=== PATIENT | female | born 1985 | race Caucasian/White ===

== ENCOUNTER 2018-02-02 22:14 | Inpatient (IN) | payer BC ==
[2018-02-02] MEDS ORDERED: Sodium Chloride 0.9% 10 ML Syringe FLUSH PRN (23:09)
[2018-02-02] MEDS ORDERED: Oxytocin/Lactated Ringers 10 UNIT/1,000 ML BAG IV SCH (23:15)
--- NOTE | 2018-02-02 23:34 | PCM.LDHP ---
L&D History of Present Illness - General Date of Service: 02/02/18 Admit Problem/Dx: Patient Status Order with Admit Dx/Problem 02/02/18 23:10 Patient Status [ADT] Routine Admission Diagnosis/Problem Admission Diagnosis/Problem Source of Information: Patient History Limitations: Reports: No Limitations - History of Present Illness Introduction:: Patient is a 33 y/o at 38 2/7 weeks gestation who presents with SROM/ labor. SROM and contractions began at about 1999. Rates contractions as a 5/ 10. No bleeding. Otherwise doing well. 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: 0 Psychiatric History: Reports: Anxiety, Depression Social & Family History - Tobacco Use Smoking Status *Q: Never Smoker - Alcohol Use Alcohol Use History: No - Recreational Drug Use Recreational Drug Use: No H&P Review of Systems - Review of Systems: Review Of Systems: See Below General: Reports: No Symptoms Pulmonary: Reports: No Symptoms Cardiovascular: Reports: No Symptoms Gastrointestinal: Reports: No Symptoms Genitourinary: Reports: No Symptoms Musculoskeletal: Reports: No Symptoms Psychiatric: Reports: No Symptoms Neurological: Reports: No Symptoms L&D Exam - Exam Exam: See Below - Vital Signs Weight: 73.482 kg - OB Specific Contraction Intensity: Mild to Moderate Movement: Active Heart Tones: Present Heart Tones per Min: 130 Heart Rate (FHR) Variability: Moderate (6-25 bmp) Presentation: Vertex - Henley Score Henley Score Cervix Position: Posterior Henley Score Consistency: Soft Henley Score Effacement: 51-70% Henley Score Dilation: 1-2 cm Henley Score 's Station: -3 Henley Score Total: 5 - Exam General: Alert, Oriented, Cooperative Lungs: Clear to Auscultation, Normal Respiratory Effort Cardiovascular: Regular Rate, Regular Rhythm GI/Abdominal Exam: Soft, Non-Tender Genitourinary: Normal external exam Extremities: Normal Inspection Skin: Warm, Dry, Intact - Patient Data Lab Results Last 24 hrs: Laboratory Results - last 24 hr 02/02/18 Range/Units 22:57 Membrane Rupture Positive H Result Diagrams: 02/02/18 23:25 - Problem List (1) 38 weeks gestation of SNOMED Code(s): 11132112 ICD Code: Z3A.38 - 38 WEEKS GESTATION OF Status: Acute Current Visit: Yes (2) SROM (spontaneous rupture of membranes) SNOMED Code(s): 290014976 ICD Code: [id number] - Status: Acute Current Visit: Yes Problem List Initiated/Reviewed/Updated: Yes Orders Last 24hrs: Active Orders 24 hr Category Date Time Status Patient Status [ADT] Routine ADT 02/02/18 23:10 Active Activity as Tolerated [RC] PFP Care 02/02/18 23:09 Active Communication Order [RC] ASDIRECTED Care 02/02/18 23:09 Active Heart Tones [RC] ASDIRECTED Care 02/02/18 23:10 Active Non Stress Test [RC] PER UNIT ROUTINE Care 02/02/18 23:09 Active Insert Perera Catheter [Insert Urinary Catheter] [OM.PC] Care 02/02/18 23:15 Ordered Q24H Notify Provider [RC] PFP Care 02/02/18 23:09 Active Notify Provider [RC] PRN Care 02/02/18 23:09 Active PCEA Epidural [RC] ASDIRECTED Care 02/02/18 23:11 Active Peripheral IV Care [RC] . DIRECTED Care 02/02/18 23:10 Active Urinary Catheter Assessment [RC] ASDIRECTED Care 02/02/18 23:12 Active Vital Signs [RC] PER UNIT ROUTINE Care 02/02/18 23:09 Active CBC WITH AUTO DIFF [HEME] Stat Lab 02/02/18 23:25 Received RUBELLA ANTIBODY IGG [CHEM] Stat Lab 02/02/18 23:25 Received TYPE AND SCREEN [BBK] Stat Lab 02/02/18 23:25 Received Lactated Ringers [Ringers, Lactated] 1,000 ml Med 02/02/18 23:15 Active IV ASDIRECTED Oxytocin/Lactated Ringers [Pitocin in LR 10 Units/1,000 Med 02/02/18 23:15 Active ML] 10 unit in 1,000 ml IV .CONTINUOUS Oxytocin/Lactated Ringers [Pitocin in LR 10 Units/1,000 Med 02/02/18 23:15 Active ML] 10 unit in 1,000 ml IV TITRATE Sodium Chloride 0.9% [Saline Flush] Med 02/02/18 23:09 Active 10 ml FLUSH ASDIRECTED PRN Electronic Heart Tones Ext w TOCO [WOMSER] Ot 02/02/18 23:09 Ordered Routine Electronic Heart Tones Internal [WOMSER] Per Unit Ot 02/02/18 23:09 Ordered Routine Peripheral IV Insertion Adult [OM.PC] Routine Oth 02/02/18 23:09 Ordered Resuscitation Status Routine Resus Stat 02/02/18 23:09 Ordered Medication Orders Lactated Ringer's (Ringers, Lactated) 1,000 mls @ 100 mls/hr IV ASDIRECTED LATRICE Oxytocin/Lactated Ringer's (Pitocin In Lr 10 Units/1,000 Ml) 10 unit in 1,000 mls @ 500 mls/hr IV .CONTINUOUS LATRICE Oxytocin/Lactated Ringer's (Pitocin In Lr 10 Units/1,000 Ml) 10 unit in 1,000 mls @ 12 mls/hr IV TITRATE LATRICE; Protocol Sodium Chloride (Saline Flush) 10 ml FLUSH ASDIRECTED PRN PRN Reason: Keep Vein Open Assessment/Plan Comment:: 33 y/o at 38 2/7 wks presents with SROM/labor * CBC, T&S, RPR * GBS negative, no need for antibiotics * Allow patient to labor on her own, pitocin augmentation if needed * pain control per patient preference * Anticipate
[2018-02-03] MEDS: Lactated Ringers 1,000 ML IV SCH ×5 (03:05→15:40)
[2018-02-03] MEDS ORDERED: fentaNYL 100 MCG/2 ML SDV EPIDUR PRN (03:46)
[2018-02-03] MEDS ORDERED: diphenhydrAMINE 50 MG/ML SDV IVPUSH PRN (03:46)
[2018-02-03] MEDS ORDERED: ePHEDrine 50 MG/ML SDV IVPUSH PRN (03:46)
[2018-02-03] MEDS: Bupivacaine/fentaNYL/NS 100 ML Bag EPIDUR SCH ×3 (04:11→15:40)
--- NOTE | 2018-02-03 04:14 | PCM.PREANE ---
Preanesthetic Assessment - Anesthesia/Transfusion/Family Hx Anesthesia History: No Prior Anesthesia Family History of Anesthesia Reaction: No Transfusion History: No Prior Transfusion(s) - Review of Systems General: No Symptoms Pulmonary: No Symptoms Cardiovascular: No Symptoms Gastrointestinal: No Symptoms Neurological: No Symptoms Other: Reports: None - Physical Assessment Pulse: 92 O2 Sat by Pulse Oximetry: 97 Respiratory Rate: 18 Blood Pressure: 119/67 Temperature: 36.3 C Vital Signs: Last Vital Signs Temp 36.6 C 02/02/18 23:09 Pulse 85 02/02/18 23:09 Resp 18 02/02/18 23:09 BP 124/79 02/02/18 23:09 Pulse Ox Height: 1.63 m Weight: 73.482 kg ASA Class: 2 Mental Status: Alert & Oriented x3 Airway Class: Mallampati = 1 Dentition: Reports: Normal Dentition Thyro-Mental Finger Breadths: 3 Mouth Opening Finger Breadths: 3 ROM/Head Extension: Full Lungs: Clear to Auscultation, Normal Respiratory Effort Cardiovascular: Regular Rate, Regular Rhythm - Lab Values: Laboratory Last Values WBC 11.16 K/mm3 (3.98-10.04) H 02/02/18 23:25 RBC 3.45 M/mm3 (3.98-5.22) L 02/02/18 23:25 Hgb 11.2 gm/L (11.2-15.7) 02/02/18 23:25 Hct 33.1 % (34.1-44.9) L 02/02/18 23:25 MCV 95.9 fl (79.4-94.8) H 02/02/18 23:25 MCH 32.5 pg (25.6-32.2) H 02/02/18 23:25 MCHC 33.8 g/dl (32.2-35.5) 02/02/18 23:25 RDW Std Deviation 44.4 fL (36.4-46.3) 02/02/18 23:25 Plt Count 157 K/mm3 (182-369) L 02/02/18 23:25 MPV 10.2 fl (9.4-12.3) 02/02/18 23:25 Neut % (Auto) 73.2 % (34.0-71.1) H 02/02/18 23:25 Lymph % (Auto) 18.0 % (19.3-51.7) L 02/02/18 23:25 [place] % (Auto) 7.5 % (4.7-12.5) 02/02/18 23:25 Eos % (Auto) 0.5 (0.7-5.8) L 02/02/18 23:25 Baso % (Auto) 0.2 % (0.1-1.2) 02/02/18 23:25 Neut # (Auto) 8.16 K/mm3 (1.56-6.13) H 02/02/18 23:25 Lymph # (Auto) 2.01 K/mm3 (1.18-3.74) 02/02/18 23:25 [place] # (Auto) 0.84 K/mm3 (0.24-0.36) H 02/02/18 23:25 Eos # (Auto) 0.06 K/mm3 (0.04-0.36) 02/02/18 23:25 Baso # (Auto) 0.02 K/mm3 (0.01-0.08) 02/02/18 23:25 Membrane Rupture Positive H 02/02/18 22:57 Blood Type O POSITIVE 02/02/18 23:25 Gel Antibody Screen Negative 02/02/18 23:25 - Allergies Allergies/Adverse Reactions: Allergies Allergy/AdvReac Type Severity Reaction Status Date / Time codeine Allergy Anaphylactic Verified 02/02/18 23:09 Shock - Anesthesia Plan Pre-Op Medication Ordered: None - Acknowledgements Anesthesia Type Planned: Epidural Pt an Appropriate Candidate for the Planned Anesthesia: Yes Alternatives and Risks of Anesthesia Discussed w Pt/Guardian: Yes Pt/Guardian Understands and Agrees with Anesthesia Plan: Yes PreAnesthesia Questionnaire - Past Health History Medical/Surgical History: Denies Medical/Surgical History Gastrointestinal History: Reports: GERD 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: Psychiatric History: Reports: Anxiety, Depression - SUBSTANCE USE Smoking Status *Q: Never Smoker Recreational Drug Use History: No - HOME MEDS Home Medications: Home Meds Vits #93/Iron Fum/FA [ Formula Tablet] 02/03/18 [History] - CURRENT (IN HOUSE) MEDS Current Meds: Current Medications Diphenhydramine HCl (Benadryl) 25 mg IVPUSH Q6H PRN PRN Reason: Itching Ephedrine Sulfate (Ephedrine Sulfate) 5 mg IVPUSH ASDIRECTED PRN PRN Reason: HYPOTENTSION Fentanyl (Sublimaze) 100 mcg EPIDUR Q3H PRN PRN Reason: Pain Last Admin: 02/03/18 04:10 Dose: 100 mcg Fentanyl/Bupivacaine HCl (Fentanyl/Bupivacaine/Ns 2 Mcg-0.125% 100 Ml) 100 ml EPIDUR ASDIRECTED LATRICE Last Admin: 02/03/18 04:11 Dose: 100 ml Lactated Ringer's (Ringers, Lactated) 1,000 mls @ 100 mls/hr IV ASDIRECTED LATRICE Last Admin: 02/03/18 03:05 Dose: 900 mls/hr Oxytocin/Lactated Ringer's (Pitocin In Lr 10 Units/1,000 Ml) 10 unit in 1,000 mls @ 500 mls/hr IV .CONTINUOUS LATRICE Oxytocin/Lactated Ringer's (Pitocin In Lr 10 Units/1,000 Ml) 10 unit in 1,000 mls @ 12 mls/hr IV TITRATE LATRICE; Protocol Sodium Chloride (Saline Flush) 10 ml FLUSH ASDIRECTED PRN PRN Reason: Keep Vein Open
[2018-02-03] MEDS ORDERED: Ondansetron 4 MG/2 ML SDV IVPUSH PRN (05:47)
[2018-02-03] MEDS: Oxytocin/Lactated Ringers 10 UNIT/1,000 ML BAG IV SCH ×2 (05:59→17:59)
--- NOTE | 2018-02-03 10:44 | PCM.PNLD ---
Labor Progress Note - VS & Meds Vital Signs: Last Vital Signs Temp 36.3 C 02/03/18 04:14 Pulse 92 02/03/18 04:14 Resp 18 02/03/18 04:14 BP 119/67 02/03/18 04:14 Pulse Ox 97 02/03/18 04:14 Active Medications: Current Medications Diphenhydramine HCl (Benadryl) 25 mg IVPUSH Q6H PRN PRN Reason: Itching Ephedrine Sulfate (Ephedrine Sulfate) 5 mg IVPUSH ASDIRECTED PRN PRN Reason: HYPOTENTSION Fentanyl (Sublimaze) 100 mcg EPIDUR Q3H PRN PRN Reason: Pain Last Admin: 02/03/18 04:10 Dose: 100 mcg Fentanyl/Bupivacaine HCl (Fentanyl/Bupivacaine/Ns 2 Mcg-0.125% 100 Ml) 100 ml EPIDUR ASDIRECTED LATRICE Last Admin: 02/03/18 09:49 Dose: 100 ml Lactated Ringer's (Ringers, Lactated) 1,000 mls @ 100 mls/hr IV ASDIRECTED LATRICE Last Admin: 02/03/18 05:58 Dose: 100 mls/hr Oxytocin/Lactated Ringer's (Pitocin In Lr 10 Units/1,000 Ml) 10 unit in 1,000 mls @ 500 mls/hr IV .CONTINUOUS LATRICE Oxytocin/Lactated Ringer's (Pitocin In Lr 10 Units/1,000 Ml) 10 unit in 1,000 mls @ 12 mls/hr IV TITRATE LATRICE; Protocol Last Titration: 02/03/18 10:36 Dose: 16 munits/min, 96 mls/hr Ondansetron HCl (Zofran) 4 mg IVPUSH Q8H PRN PRN Reason: Nausea Last Admin: 02/03/18 05:53 Dose: 4 mg Sodium Chloride (Saline Flush) 10 ml FLUSH ASDIRECTED PRN PRN Reason: Keep Vein Open - Uterine Contractions Uterine Monitoring Mode: External [place] Contraction Intensity: Moderate to Strong - Monitoring Monitor Mode: External Ultrasound Heart Rate (FHR) Baseline: 130 Heart Rate (FHR) Variability: Moderate (6-25 bmp) Accelerations: Present, 15x15 Decelerations: None - Vaginal Exam Dilation (cm): 3-4 Effacement (Percent): 50 Station: -2 Cervical Position: Midposition - Labor Progress (Free Text) Labor Progress: Patient received epidural in early AM. Pitocin started around 0600. Currently at 14. Making some change. Continue present management
--- NOTE | 2018-02-03 14:02 | PCM.PNLD ---
Labor Progress Note - VS & Meds Vital Signs: Last Vital Signs Temp 36.3 C 02/03/18 04:14 Pulse 92 02/03/18 04:14 Resp 18 02/03/18 04:14 BP 119/67 02/03/18 04:14 Pulse Ox 97 02/03/18 04:14 Active Medications: Current Medications Diphenhydramine HCl (Benadryl) 25 mg IVPUSH Q6H PRN PRN Reason: Itching Ephedrine Sulfate (Ephedrine Sulfate) 5 mg IVPUSH ASDIRECTED PRN PRN Reason: HYPOTENTSION Fentanyl (Sublimaze) 100 mcg EPIDUR Q3H PRN PRN Reason: Pain Last Admin: 02/03/18 04:10 Dose: 100 mcg Fentanyl/Bupivacaine HCl (Fentanyl/Bupivacaine/Ns 2 Mcg-0.125% 100 Ml) 100 ml EPIDUR ASDIRECTED LATRICE Last Admin: 02/03/18 09:49 Dose: 100 ml Lactated Ringer's (Ringers, Lactated) 1,000 mls @ 100 mls/hr IV ASDIRECTED LATRICE Last Admin: 02/03/18 05:58 Dose: 100 mls/hr Oxytocin/Lactated Ringer's (Pitocin In Lr 10 Units/1,000 Ml) 10 unit in 1,000 mls @ 500 mls/hr IV .CONTINUOUS LATRICE Oxytocin/Lactated Ringer's (Pitocin In Lr 10 Units/1,000 Ml) 10 unit in 1,000 mls @ 12 mls/hr IV TITRATE LATRICE; Protocol Last Titration: 02/03/18 13:15 Dose: 17 munits/min, 102 mls/hr Ondansetron HCl (Zofran) 4 mg IVPUSH Q8H PRN PRN Reason: Nausea Last Admin: 02/03/18 05:53 Dose: 4 mg Sodium Chloride (Saline Flush) 10 ml FLUSH ASDIRECTED PRN PRN Reason: Keep Vein Open - Uterine Contractions Uterine Monitoring Mode: External [place] Contraction Intensity: Moderate to Strong - Monitoring Monitor Mode: External Ultrasound Heart Rate (FHR) Baseline: 130 Heart Rate (FHR) Variability: Moderate (6-25 bmp) Accelerations: Present, 15x15 Decelerations: None Strip Review: Category I - Vaginal Exam Dilation (cm): 5 Effacement (Percent): 75 Station: 0 Cervical Position: Midposition - Labor Progress (Free Text) Labor Progress: Patient currently on 17 of pitocin. Feeling some pressure with contractions. SVE with a scant amount of bloody show. Now about 5 cm when previously 3-4. Continue present management.
[2018-02-03] MEDS ORDERED: Acetaminophen 325 MG Tab PO PRN (15:00)
--- NOTE | 2018-02-03 17:32 | PCM.PNLD ---
Labor Progress Note - VS & Meds Vital Signs: Last Vital Signs Temp 36.3 C 02/03/18 04:14 Pulse 92 02/03/18 04:14 Resp 18 02/03/18 04:14 BP 119/67 02/03/18 04:14 Pulse Ox 97 02/03/18 04:14 Active Medications: Current Medications Acetaminophen (Tylenol) 650 mg PO Q6H PRN PRN Reason: Headache/Pain Last Admin: 02/03/18 15:08 Dose: 650 mg Diphenhydramine HCl (Benadryl) 25 mg IVPUSH Q6H PRN PRN Reason: Itching Ephedrine Sulfate (Ephedrine Sulfate) 5 mg IVPUSH ASDIRECTED PRN PRN Reason: HYPOTENTSION Fentanyl (Sublimaze) 100 mcg EPIDUR Q3H PRN PRN Reason: Pain Last Admin: 02/03/18 04:10 Dose: 100 mcg Fentanyl/Bupivacaine HCl (Fentanyl/Bupivacaine/Ns 2 Mcg-0.125% 100 Ml) 100 ml EPIDUR ASDIRECTED LATRICE Last Admin: 02/03/18 15:40 Dose: 100 ml Lactated Ringer's (Ringers, Lactated) 1,000 mls @ 100 mls/hr IV ASDIRECTED LATRICE Last Admin: 02/03/18 15:40 Dose: 100 mls/hr Oxytocin/Lactated Ringer's (Pitocin In Lr 10 Units/1,000 Ml) 10 unit in 1,000 mls @ 500 mls/hr IV .CONTINUOUS LATRICE Oxytocin/Lactated Ringer's (Pitocin In Lr 10 Units/1,000 Ml) 10 unit in 1,000 mls @ 12 mls/hr IV TITRATE LATRICE; Protocol Last Titration: 02/03/18 13:15 Dose: 17 munits/min, 102 mls/hr Ondansetron HCl (Zofran) 4 mg IVPUSH Q8H PRN PRN Reason: Nausea Last Admin: 02/03/18 05:53 Dose: 4 mg Sodium Chloride (Saline Flush) 10 ml FLUSH ASDIRECTED PRN PRN Reason: Keep Vein Open - Uterine Contractions Uterine Monitoring Mode: External [place] Contraction Intensity: Moderate to Strong - Monitoring Monitor Mode: External Ultrasound Heart Rate (FHR) Baseline: 140 Heart Rate (FHR) Variability: Moderate (6-25 bmp) Accelerations: Present, 15x15 Decelerations: Early, Variable Strip Review: Category II - Vaginal Exam Dilation (cm): 5 Effacement (Percent): 50 Station: -1 Cervical Position: Midposition - Labor Progress (Free Text) Labor Progress: Patient last checked about 2.5 hours ago and was 5 cm. Remained 5 cm and cervix feels slightly more edematous at this time. IUPC placed. Position changes employed. Will assess again in another 2-3 hours assuming adequate contraction pattern.
--- NOTE | 2018-02-03 19:45 | PCM.SN ---
- Free Text/Narrative Note: 1937 Patient with adequate contraction pattern for the last 3 hours as based on IUPC. SVE essentially unchanged. Reviewed with patient options. Could certainly allow labor a few more hours, but feel this has a low probability of bringing about change/achieving . Can also move forward with PLTCS. Patient does prefer PLTCS. Anesthesia, OR, Peds to be made aware. Susan Caceres MD
[2018-02-03] MEDS ORDERED: ceFAZolin 2 GM in Premix Bag 1 BAG IV ONE (19:46)
[2018-02-03] MEDS ORDERED: Citric Acid/Sodium Citrate Solution 30 ML Cup PO ONE (19:46)
[2018-02-03] MEDS ORDERED: Metoclopramide 10 MG/2 ML SDV IVPUSH ONE (19:46)
[2018-02-03] MEDS ORDERED: Phenylephrine 1% 10 MG/ML SDV ONE (19:56)
[2018-02-03] MEDS ORDERED: Morphine PF 10 MG/10 ML SDV ONE (19:56)
[2018-02-03] MEDS ORDERED: ceFAZolin 1 GM Vial ONE (19:56)
[2018-02-03] MEDS ORDERED: Oxytocin 10 Units/1 ML SDV ONE (19:57)
[2018-02-03] MEDS ORDERED: Bupivacaine 0.75%/D5W 2 ML Amp ONE (19:57)
[2018-02-03] MEDS ORDERED: Lidocaine 2% with EPINEPHrine 1:200,000 20 ML SDV ONE (20:00)
--- NOTE | 2018-02-03 20:00 | PCM.OPNOTE ---
- General Post-Op/Procedure Note Date of Surgery/Procedure: 02/03/18 Operative Procedure(s): Primary low transverse Findings: Very distended/full bladder noted upon entering the abdomen. Baby girl in a vertex presentation. Weight of 8 lbs and 0 oz. APGARS of 8 & 9. Normal appearance of the uterus, fallopian tubes, and ovaries after delivery. Bladder decompressed after delivery of baby. Pre Op Diagnosis: 38 weeks gestation. PROM. 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 Pathology: Cord blood collected. Placenta discarded. Fluid Replacement, Intraop: 1,100 Output, Urine Amount: 500 EBL in mLs: 750 Complications: None Condition: Good Free Text/Narrative:: The risks, benefits, indications, potential complications, and alternatives were explained to the patient and informed consent obtained. After induction of anesthesia, the patient was placed in a supine position and then draped and prepped in the usual sterile manner. A Pfannenstiel incision was made and carried down through the subcutaneous tissue to the fascia. Fascial incision was made and extended transversely. The fascia was from the underlying rectus tissue superiorly and inferiorly. The peritoneum was identified and entered. Peritoneal incision was extended longitudinally. At this point it was noted that the bladder was significantly distended. Nursing made attempt to flush russo and advance russo, but without any significant draining of the bladder noted. Very carefully the the utero- vesical peritoneal reflection was incised transversely and the bladder flap was bluntly freed from the lower uterine segment. The bladder was held down with a hand and not a retractor to avoid injury. A low transverse uterine incision was made sharply with a scalpel and extended bluntly in a cephalocaudad direction. A baby girl was delivered from a vertex presentation with APGARS as above. After the umbilical cord was clamped and cut cord blood was obtained for evaluation. The placenta was removed intact and appeared normal. At this point the bladder was noted to be draining properly. The uterus was exteriorized and cleared of clots. The uterine outline, tubes and ovaries appeared normal. The uterine incision was closed with running locked sutures of 0 Vicryl. Hemostasis was obtained with a second imbricating layer of 0 vicryl in addition to several interrupted 0 vicryl sutures placed in figure of eight style. There as a moderate sized, 3 x 3 cm, subserosal hematoma noted on the left aspect of the uterus just superior to the hysterotomy. This was stable over the course of case and not expanding. The uterus was then placed back into the abdomen. The infracolic gutters were cleared of blood clots. The fascia was then reapproximated with running sutures of 0 Vicryl. The sucutaneous tissue was irrigated with sterile warm normal saline, hemostasis obtained with cautery. This layer was also closed with a running 0 vicryl. The skin was reapproximated with running Subcuticular 4-0 monocryl sutures. Instrument, sponge, and needle counts were correct prior the abdominal closure and at the conclusion of the case.
[2018-02-03] MEDS ORDERED: Ketorolac 30 MG/ML SDV ONE (20:45)
[2018-02-03] MEDS ORDERED: Meperidine PF 50 MG/ML Syringe ONE (21:01)
--- NOTE | 2018-02-03 21:25 | PCM.POSTAN ---
POST ANESTHESIA ASSESSMENT - MENTAL STATUS Mental Status: Alert, Oriented - VITAL SIGNS Pulse Rate: 98 SaO2: 95 Resp Rate: 16 Blood Pressure: 115/76 Temperature: 37.0 C - RESPIRATORY Respiratory Status: Respiratory Rate WNL, Airway Patent, O2 Saturation Stable, Supplemental Oxygen - CARDIOVASCULAR CV Status: Pulse Rate WNL, Blood Pressure Stable - GASTROINTESTINAL GI Status: No Symptoms - PAIN Pain Score: 0 - POST OP HYDRATION Hydration Status: Adequate & Stable - OBSERVATIONS Free Text/Narrative:: no anesthesia complications noted
[2018-02-03] MEDS ORDERED: Bupivacaine 0.25% 10 ML SDV ONE (22:00)
[2018-02-04] MEDS ORDERED: ePHEDrine 50 MG/ML SDV IVPUSH PRN (00:45)
[2018-02-04] MEDS ORDERED: Ondansetron 4 MG/2 ML SDV IV PRN (00:45)
[2018-02-04] MEDS ORDERED: Lanolin 100% Cream 7 GM Tube TOP PRN (00:45)
[2018-02-04] MEDS ORDERED: Dextrose 5%-Lactated Ringers 1,000 ML IV SCH (00:45)
[2018-02-04] MEDS: Ketorolac 30 MG/ML SDV IVPUSH SCH ×3 (03:39→15:37)
--- NOTE | 2018-02-04 08:43 | PCM.PNPP ---
- General Info Date of Service: 02/04/18 Functional Status: Reports: Pain Controlled, Tolerating Diet - Review of Systems General: Reports: No Symptoms Pulmonary: Reports: No Symptoms Cardiovascular: Reports: No Symptoms Gastrointestinal: Reports: Abdominal Pain (managed with medications ), Flatus Genitourinary: Reports: No Symptoms Musculoskeletal: Reports: No Symptoms - Patient Data Vital Signs - Most Recent: Last Vital Signs Temp 36.9 C 02/04/18 01:43 Pulse 81 02/04/18 03:39 Resp 15 02/04/18 07:00 BP 109/85 02/04/18 03:39 Pulse Ox 99 02/04/18 07:00 Weight - Most Recent: 73.482 kg I&O - Last 24 Hours: Intake & Output 02/03/18 02/04/18 02/04/18 22:59 06:59 14:59 Intake Total 640 4000 1100 Output Total 650 1250 500 Balance -10 2750 600 Lab Results - Last 24 Hours: Laboratory Results - last 24 hr 02/02/18 02/04/18 Range/Units 23:25 06:25 WBC 12.33 H (3.98-10.04) K/mm3 RBC 2.57 L (3.98-5.22) M/mm3 Hgb 8.2 L (11.2-15.7) gm/L Hct 24.9 L (34.1-44.9) % MCV 96.9 H (79.4-94.8) fl MCH 31.9 (25.6-32.2) pg MCHC 32.9 (32.2-35.5) g/dl RDW Std Deviation 44.5 (36.4-46.3) fL Plt Count 135 L (182-369) K/mm3 MPV 10.0 (9.4-12.3) fl RPR Non-reactive (NONREACTIVE) Med Orders - Current: Current Medications Docusate Sodium (Colace) 100 mg PO Q12H PRN PRN Reason: Constipation Emollient Ointment (Lansinoh Hpa) 0 gm TOP ASDIRECTED PRN PRN Reason: Sore Nipples Last Admin: 02/04/18 01:46 Dose: 1 tube Ephedrine Sulfate (Ephedrine Sulfate) 5 mg IVPUSH SEECOMMENT PRN PRN Reason: Other Dextrose/Lactated Ringer's (Dextrose 5%-Lactated Ringers) 1,000 mls @ 125 mls/ hr IV ASDIRECTED [facility] Stop: 02/04/18 08:44 Last Admin: 02/04/18 01:44 Dose: 125 mls/hr Ibuprofen (Motrin) 600 mg PO Q6H PRN PRN Reason: mild pain or fever Ketorolac Tromethamine (Toradol) 30 mg IVPUSH Q6H [facility] Stop: 02/04/18 15:31 Last Admin: 02/04/18 03:39 Dose: 30 mg Ondansetron HCl (Zofran) 4 mg IV Q8H PRN PRN Reason: Nausea/Vomiting Oxycodone/Acetaminophen (Percocet 325-5 Mg) 2 tab PO Q4H PRN PRN Reason: Pain (moderate 4-6) Discontinued Medications Acetaminophen (Tylenol) 650 mg PO Q6H PRN PRN Reason: Headache/Pain Last Admin: 02/03/18 15:08 Dose: 650 mg Bupivacaine HCl/Dextrose (Marcaine 0.75% Spinal) Confirm Administered Dose 2 ml .ROUTE .STK-MED ONE Stop: 02/03/18 19:58 Cefazolin Sodium (Ancef) Confirm Administered Dose 2 gm .ROUTE .STK-MED ONE Stop: 02/03/18 19:57 Citric Acid/Sodium Citrate (Bicitra Solution) 30 ml PO ONETIME ONE Stop: 02/03/18 19:47 Last Admin: 02/03/18 20:01 Dose: 30 ml Diphenhydramine HCl (Benadryl) 25 mg IVPUSH Q6H PRN PRN Reason: Itching Ephedrine Sulfate (Ephedrine Sulfate) 5 mg IVPUSH ASDIRECTED PRN PRN Reason: HYPOTENTSION Fentanyl (Sublimaze) 100 mcg EPIDUR Q3H PRN PRN Reason: Pain Last Admin: 02/03/18 04:10 Dose: 100 mcg Fentanyl/Bupivacaine HCl (Fentanyl/Bupivacaine/Ns 2 Mcg-0.125% 100 Ml) 100 ml EPIDUR ASDIRECTED [facility] Last Admin: 02/03/18 15:40 Dose: 100 ml Lactated Ringer's (Ringers, Lactated) 1,000 mls @ 100 mls/hr IV ASDIRECTED [facility] Last Admin: 02/03/18 15:40 Dose: 100 mls/hr Oxytocin/Lactated Ringer's (Pitocin In Lr 10 Units/1,000 Ml) 10 unit in 1,000 mls @ 500 mls/hr IV .CONTINUOUS LATRICE Oxytocin/Lactated Ringer's (Pitocin In Lr 10 Units/1,000 Ml) 10 unit in 1,000 mls @ 12 mls/hr IV TITRATE LATRICE; Protocol Last Titration: 02/03/18 19:37 Dose: 0 munits/min, 0 mls/hr Cefazolin Sodium/Dextrose 2 gm (/ Premix) 50 mls @ 100 mls/hr IV ONETIME ONE Stop: 02/03/18 20:15 Ketorolac Tromethamine (Toradol) Confirm Administered Dose 30 mg .ROUTE .STK- MED ONE Stop: 02/03/18 20:46 Lidocaine/Epinephrine (Xylocaine-Mpf 2%-Epi 1:200,000) Confirm Administered Dose 20 ml .ROUTE .STK-MED ONE Stop: 02/03/18 20:01 Meperidine HCl (Demerol) Confirm Administered Dose 50 mg .ROUTE .STK-MED ONE Stop: 02/03/18 21:02 Metoclopramide HCl (Reglan) 10 mg IVPUSH ONETIME ONE Stop: 02/03/18 19:47 Last Admin: 02/03/18 20:03 Dose: 10 mg Morphine Sulfate (Duramorph Pf) Confirm Administered Dose 10 mg .ROUTE .STK-MED ONE Stop: 02/03/18 19:57 Ondansetron HCl (Zofran) 4 mg IVPUSH Q8H PRN PRN Reason: Nausea Last Admin: 02/03/18 05:53 Dose: 4 mg Oxytocin (Pitocin) Confirm Administered Dose 10 unit .ROUTE .STK-MED ONE Stop: 02/03/18 19:58 Phenylephrine HCl (Orion-Synephrine) Confirm Administered Dose 10 mg .ROUTE .STK- MED ONE Stop: 02/03/18 19:57 Sodium Chloride (Saline Flush) 10 ml FLUSH ASDIRECTED PRN PRN Reason: Keep Vein Open - Interaction Infant Disposition, : in Room with Family Infant Interaction: Holding Infant Infant Feeding: Attempted ; Nursed Fair/Poor Support Person: - Recovery Exam Fundal Tone: Firm Fundal Level: At Umbilicus Fundal Placement: Midline Lochia Amount: Scant Lochia Color: Rubra/Red Perineum Description: Edematous Episiotomy/Laceration: None Bladder Status: Nonpalpable Urinary Elimination: Indwelling Catheter - Exam General: Alert, Oriented, Cooperative Lungs: Clear to Auscultation, Normal Respiratory Effort Cardiovascular: Regular Rate, Regular Rhythm GI/Abdominal Exam: Soft, Distended, Tender (appropriate post op) Extremities: Normal Inspection, Pedal Edema Skin: Warm, Dry, Intact Wound/Incisions: Drainage (serosanguinous drainage on dressing, replaced. Incision intact underneath) - Problem List & Annotations (1) 38 weeks gestation of SNOMED Code(s): 44928152 Code(s): Z3A.38 - 38 WEEKS GESTATION OF Status: Acute Current Visit: Yes (2) SROM (spontaneous rupture of membranes) SNOMED Code(s): 932059970 Code(s): LYY5064 - Status: Acute Current Visit: Yes - Problem List Review Problem List Initiated/Reviewed/Updated: Yes - My Orders Last 24 Hours: My Active Orders 02/03/18 19:46 Procedure Site Prep Instruct [RC] ASDIRECTED Verify Patient Consent Obtain [RC] PER UNIT ROUTINE 02/04/18 00:45 Activity as Tolerated [RC] .Routine Communication Order [RC] PER UNIT ROUTINE Intake and Output [RC] Q4H Notify Provider Intake and Out [RC] ASDIRECTED RT Incentive Spirometry [RC] Q2HWA Vital Signs [RC] Q1HR Acetaminophen/oxyCODONE [Percocet 325-5 MG] 2 tab PO Q4H PRN Dextrose 5%-Lactated Ringers 1,000 ml IV ASDIRECTED Docusate Sodium [Colace] 100 mg PO Q12H PRN Lanolin [Lansinoh HPA] See Dose Instructions TOP ASDIRECTED PRN Ondansetron [Zofran] 4 mg IV Q8H PRN ePHEDrine [ePHEDrine Sulfate] 5 mg IVPUSH SEECOMMENT PRN Assess Lochia [WOMSER] Per Unit Routine Assess Uterine Involution [WOMSER] Per Unit Routine Breast Pump [WOMSER] Per Unit Routine Peripheral IV Discontinue [OM.PC] Routine Sequential Compression Device [OM.PC] Per Unit Routine 02/04/18 03:30 Ketorolac [Toradol] 30 mg IVPUSH Q6H 02/04/18 21:26 Urinary Catheter Removal [RC] Per Unit Routine 02/04/18 21:30 Ibuprofen [Motrin] 600 mg PO Q6H PRN 02/04/18 Dinner Regular Diet [DIET] - Assessment Assessment:: 33 y/o G1 now P1001 POD#1 from [facility] for FTP in 1st stage. - Plan Plan:: [facility] * Hb today with drop to 8 from 11, suspect some amount of dilution given amount of fluids patient received. Will repeat tomorrow * Routine care * Encourage breast feeding * Discharge home in 1-2 days
[2018-02-04] MEDS: Docusate Sodium 100 MG Cap PO PRN (09:45)
[2018-02-04] MEDS: Simethicone 80 MG Tab.Chew PO PRN ×2 (09:45→15:43)
--- NOTE | 2018-02-04 11:28 | PCM48HPAN ---
Post Anesthesia Note - EVALUATION WITHIN 48HRS OF ANESTHETIC Vital Signs in Normal Range: Yes Patient Participated in Evaluation: Yes Respiratory Function Stable: Yes Airway Patent: Yes Cardiovascular Function Stable: Yes Hydration Status Stable: Yes Pain Control Satisfactory: Yes Nausea and Vomiting Control Satisfactory: Yes Mental Status Recovered: Yes Pulse Rate: 81 Resp Rate: 16 Temperature: 36.9 C Blood Pressure: 109/85
[2018-02-04] MEDS: Ibuprofen 600 MG Tab PO PRN (21:30)
--- NOTE | 2018-02-05 06:52 | PCM.PNPP ---
- General Info Date of Service: 02/05/18 Functional Status: Reports: Pain Controlled, Tolerating Diet, Ambulating, Urinating - Review of Systems General: Reports: No Symptoms Pulmonary: Reports: No Symptoms Cardiovascular: Reports: No Symptoms Gastrointestinal: Reports: Abdominal Pain (managed with medications) Genitourinary: Reports: No Symptoms Musculoskeletal: Reports: No Symptoms Psychiatric: Reports: Anxiety - Patient Data Vital Signs - Most Recent: Last Vital Signs Temp 36.7 C 02/05/18 02:38 Pulse 69 02/05/18 02:38 Resp 16 02/05/18 02:38 BP 108/79 02/05/18 02:38 Pulse Ox 95 02/05/18 02:38 Weight - Most Recent: 73.482 kg I&O - Last 24 Hours: Intake & Output 02/04/18 02/04/18 02/05/18 14:59 22:59 06:59 Intake Total 1280 Output Total 1175 1500 Balance 105 -1500 Lab Results - Last 24 Hours: Laboratory Results - last 24 hr 02/04/18 02/05/18 Range/Units 06:25 05:45 WBC 12.33 H 11.96 H (3.98-10.04) K/mm3 RBC 2.57 L 2.66 L (3.98-5.22) M/mm3 Hgb 8.2 L 8.5 L (11.2-15.7) gm/L Hct 24.9 L 26.1 L (34.1-44.9) % MCV 96.9 H 98.1 H (79.4-94.8) fl MCH 31.9 32.0 (25.6-32.2) pg MCHC 32.9 32.6 (32.2-35.5) g/dl RDW Std Deviation 44.5 45.7 (36.4-46.3) fL Plt Count 135 L 158 L (182-369) K/mm3 MPV 10.0 9.6 (9.4-12.3) fl Med Orders - Current: Current Medications Docusate Sodium (Colace) 100 mg PO Q12H PRN PRN Reason: Constipation Last Admin: 02/04/18 09:45 Dose: 100 mg Emollient Ointment (Lansinoh Hpa) 0 gm TOP ASDIRECTED PRN PRN Reason: Sore Nipples Last Admin: 02/04/18 01:46 Dose: 1 tube Ephedrine Sulfate (Ephedrine Sulfate) 5 mg IVPUSH SEECOMMENT PRN PRN Reason: Other Ibuprofen (Motrin) 600 mg PO Q6H PRN PRN Reason: mild pain or fever Last Admin: 02/04/18 21:30 Dose: 600 mg Ondansetron HCl (Zofran) 4 mg IV Q8H PRN PRN Reason: Nausea/Vomiting Oxycodone/Acetaminophen (Percocet 325-5 Mg) 2 tab PO Q4H PRN PRN Reason: Pain (moderate 4-6) Simethicone (Simethicone) 80 mg PO Q4H PRN PRN Reason: Gas Last Admin: 02/04/18 15:43 Dose: 80 mg Discontinued Medications Acetaminophen (Tylenol) 650 mg PO Q6H PRN PRN Reason: Headache/Pain Last Admin: 02/03/18 15:08 Dose: 650 mg Bupivacaine HCl/Dextrose (Marcaine 0.75% Spinal) Confirm Administered Dose 2 ml .ROUTE .STK-MED ONE Stop: 02/03/18 19:58 Cefazolin Sodium (Ancef) Confirm Administered Dose 2 gm .ROUTE .STK-MED ONE Stop: 02/03/18 19:57 Citric Acid/Sodium Citrate (Bicitra Solution) 30 ml PO ONETIME ONE Stop: 02/03/18 19:47 Last Admin: 02/03/18 20:01 Dose: 30 ml Diphenhydramine HCl (Benadryl) 25 mg IVPUSH Q6H PRN PRN Reason: Itching Ephedrine Sulfate (Ephedrine Sulfate) 5 mg IVPUSH ASDIRECTED PRN PRN Reason: HYPOTENTSION Fentanyl (Sublimaze) 100 mcg EPIDUR Q3H PRN PRN Reason: Pain Last Admin: 02/03/18 04:10 Dose: 100 mcg Fentanyl/Bupivacaine HCl (Fentanyl/Bupivacaine/Ns 2 Mcg-0.125% 100 Ml) 100 ml EPIDUR ASDIRECTED [facility] Last Admin: 02/03/18 15:40 Dose: 100 ml Lactated Ringer's (Ringers, Lactated) 1,000 mls @ 100 mls/hr IV ASDIRECTED [facility] Last Admin: 02/03/18 15:40 Dose: 100 mls/hr Oxytocin/Lactated Ringer's (Pitocin In Lr 10 Units/1,000 Ml) 10 unit in 1,000 mls @ 500 mls/hr IV .CONTINUOUS LATRICE Oxytocin/Lactated Ringer's (Pitocin In Lr 10 Units/1,000 Ml) 10 unit in 1,000 mls @ 12 mls/hr IV TITRATE LATRICE; Protocol Last Titration: 02/03/18 19:37 Dose: 0 munits/min, 0 mls/hr Cefazolin Sodium/Dextrose 2 gm (/ Premix) 50 mls @ 100 mls/hr IV ONETIME ONE Stop: 02/03/18 20:15 Last Admin: 02/04/18 18:03 Dose: Not Given Dextrose/Lactated Ringer's (Dextrose 5%-Lactated Ringers) 1,000 mls @ 125 mls/ hr IV ASDIRECTED [facility] Stop: 02/04/18 08:44 Last Admin: 02/04/18 01:44 Dose: 125 mls/hr Ketorolac Tromethamine (Toradol) Confirm Administered Dose 30 mg .ROUTE .STK- MED ONE Stop: 02/03/18 20:46 Ketorolac Tromethamine (Toradol) 30 mg IVPUSH Q6H [facility] Stop: 02/04/18 15:31 Last Admin: 02/04/18 15:37 Dose: 30 mg Lidocaine/Epinephrine (Xylocaine-Mpf 2%-Epi 1:200,000) Confirm Administered Dose 20 ml .ROUTE .STK-MED ONE Stop: 02/03/18 20:01 Meperidine HCl (Demerol) Confirm Administered Dose 50 mg .ROUTE .STK-MED ONE Stop: 02/03/18 21:02 Metoclopramide HCl (Reglan) 10 mg IVPUSH ONETIME ONE Stop: 02/03/18 19:47 Last Admin: 02/03/18 20:03 Dose: 10 mg Morphine Sulfate (Duramorph Pf) Confirm Administered Dose 10 mg .ROUTE .STK-MED ONE Stop: 02/03/18 19:57 Ondansetron HCl (Zofran) 4 mg IVPUSH Q8H PRN PRN Reason: Nausea Last Admin: 02/03/18 05:53 Dose: 4 mg Oxytocin (Pitocin) Confirm Administered Dose 10 unit .ROUTE .STK-MED ONE Stop: 02/03/18 19:58 Phenylephrine HCl (Orion-Synephrine) Confirm Administered Dose 10 mg .ROUTE .STK- MED ONE Stop: 02/03/18 19:57 Sodium Chloride (Saline Flush) 10 ml FLUSH ASDIRECTED PRN PRN Reason: Keep Vein Open - Infant Interaction Disposition, : in Room with Family Infant Interaction: Holding Infant Infant Feeding: Attempted ; Nursed Fair/Poor Support Person: - Recovery Exam Fundal Tone: Firm Fundal Level: At Umbilicus Fundal Placement: Midline Lochia Amount: Scant Lochia Color: Rubra/Red Perineum Description: Intact, Minimal Bruising/Swelling Episiotomy/Laceration: None Bladder Status: Voiding Urinary Elimination: Voided - Exam General: Alert, Oriented, Cooperative Lungs: Clear to Auscultation, Normal Respiratory Effort Cardiovascular: Regular Rate, Regular Rhythm GI/Abdominal Exam: Soft, Tender (appropriate post op) Skin: Warm, Dry, Intact Wound/Incisions: Healing Well, No Drainage - Problem List & Annotations (1) 38 weeks gestation of SNOMED Code(s): 28486699 Code(s): Z3A.38 - 38 WEEKS GESTATION OF Status: Acute Current Visit: Yes (2) SROM (spontaneous rupture of membranes) SNOMED Code(s): 353454010 Code(s): JWC1886 - Status: Acute Current Visit: Yes (3) Failure to progress in first stage of labor SNOMED Code(s): 643081792 Code(s): RDK8889 - Status: Acute Current Visit: Yes (4) S/P primary low transverse SNOMED Code(s): 370296790, 92519181, 527596989, 843984433, 619418525 Code(s): Z98.891 - HISTORY OF UTERINE SCAR FROM PREVIOUS SURGERY Status: Acute Current Visit: Yes - Problem List Review Problem List Initiated/Reviewed/Updated: Yes - My Orders Last 24 Hours: My Active Orders 02/04/18 09:34 Simethicone 80 mg PO Q4H PRN 02/04/18 21:30 Ibuprofen [Motrin] 600 mg PO Q6H PRN 02/04/18 Dinner Regular Diet [DIET] - Assessment Assessment:: 33 y/o G1 now P1001 POD#2 from [facility] for FTP in 1st stage. - Plan Plan:: [facility] * Routine care * Continue to work on breast feeding, some difficulty with latch * Patient with increasing anxiety. Will re-start her home Zoloft at 50 mg * Discharge home tomorrow
[2018-02-05] MEDS: Acetaminophen/oxyCODONE 325-5 MG Tab PO PRN ×3 (08:14→21:06)
[2018-02-05] MEDS: Docusate Sodium 100 MG Cap PO PRN (09:13)
[2018-02-05] MEDS: Ibuprofen 600 MG Tab PO PRN (21:07)
--- NOTE | 2018-02-06 07:20 | PCM.PNPP ---
- General Info Date of Service: 02/06/18 Functional Status: Reports: Pain Controlled, Tolerating Diet, Ambulating, Urinating - Review of Systems General: Reports: No Symptoms Pulmonary: Reports: No Symptoms Cardiovascular: Reports: No Symptoms Gastrointestinal: Reports: Abdominal Pain (manageable) Genitourinary: Reports: No Symptoms Musculoskeletal: Reports: No Symptoms Psychiatric: Reports: Anxiety - Patient Data Vital Signs - Most Recent: Last Vital Signs Temp 36.7 C 02/06/18 03:51 Pulse 72 02/06/18 03:51 Resp 16 02/06/18 03:51 BP 125/91 H 02/06/18 03:51 Pulse Ox 99 02/06/18 03:51 Weight - Most Recent: 73.482 kg Med Orders - Current: Current Medications Docusate Sodium (Colace) 100 mg PO Q12H PRN PRN Reason: Constipation Last Admin: 02/05/18 09:13 Dose: 100 mg Emollient Ointment (Lansinoh Hpa) 0 gm TOP ASDIRECTED PRN PRN Reason: Sore Nipples Last Admin: 02/04/18 01:46 Dose: 1 tube Ephedrine Sulfate (Ephedrine Sulfate) 5 mg IVPUSH SEECOMMENT PRN PRN Reason: Other Ibuprofen (Motrin) 600 mg PO Q6H PRN PRN Reason: mild pain or fever Last Admin: 02/05/18 21:07 Dose: 600 mg Ondansetron HCl (Zofran) 4 mg IV Q8H PRN PRN Reason: Nausea/Vomiting Oxycodone/Acetaminophen (Percocet 325-5 Mg) 2 tab PO Q4H PRN PRN Reason: Pain (moderate 4-6) Last Admin: 02/05/18 21:06 Dose: 2 tab Simethicone (Simethicone) 80 mg PO Q4H PRN PRN Reason: Gas Last Admin: 02/04/18 15:43 Dose: 80 mg Discontinued Medications Acetaminophen (Tylenol) 650 mg PO Q6H PRN PRN Reason: Headache/Pain Last Admin: 02/03/18 15:08 Dose: 650 mg Bupivacaine HCl/Dextrose (Marcaine 0.75% Spinal) Confirm Administered Dose 2 ml .ROUTE .STK-MED ONE Stop: 02/03/18 19:58 Cefazolin Sodium (Ancef) Confirm Administered Dose 2 gm .ROUTE .STK-MED ONE Stop: 02/03/18 19:57 Citric Acid/Sodium Citrate (Bicitra Solution) 30 ml PO ONETIME ONE Stop: 02/03/18 19:47 Last Admin: 02/03/18 20:01 Dose: 30 ml Diphenhydramine HCl (Benadryl) 25 mg IVPUSH Q6H PRN PRN Reason: Itching Ephedrine Sulfate (Ephedrine Sulfate) 5 mg IVPUSH ASDIRECTED PRN PRN Reason: HYPOTENTSION Fentanyl (Sublimaze) 100 mcg EPIDUR Q3H PRN PRN Reason: Pain Last Admin: 02/03/18 04:10 Dose: 100 mcg Fentanyl/Bupivacaine HCl (Fentanyl/Bupivacaine/Ns 2 Mcg-0.125% 100 Ml) 100 ml EPIDUR ASDIRECTED [facility] Last Admin: 02/03/18 15:40 Dose: 100 ml Lactated Ringer's (Ringers, Lactated) 1,000 mls @ 100 mls/hr IV ASDIRECTED [facility] Last Admin: 02/03/18 15:40 Dose: 100 mls/hr Oxytocin/Lactated Ringer's (Pitocin In Lr 10 Units/1,000 Ml) 10 unit in 1,000 mls @ 500 mls/hr IV .CONTINUOUS LATRICE Oxytocin/Lactated Ringer's (Pitocin In Lr 10 Units/1,000 Ml) 10 unit in 1,000 mls @ 12 mls/hr IV TITRATE LATRICE; Protocol Last Titration: 02/03/18 19:37 Dose: 0 munits/min, 0 mls/hr Cefazolin Sodium/Dextrose 2 gm (/ Premix) 50 mls @ 100 mls/hr IV ONETIME ONE Stop: 02/03/18 20:15 Last Admin: 02/04/18 18:03 Dose: Not Given Dextrose/Lactated Ringer's (Dextrose 5%-Lactated Ringers) 1,000 mls @ 125 mls/ hr IV ASDIRECTED [facility] Stop: 02/04/18 08:44 Last Admin: 02/04/18 01:44 Dose: 125 mls/hr Ketorolac Tromethamine (Toradol) Confirm Administered Dose 30 mg .ROUTE .STK- MED ONE Stop: 02/03/18 20:46 Ketorolac Tromethamine (Toradol) 30 mg IVPUSH Q6H [facility] Stop: 02/04/18 15:31 Last Admin: 02/04/18 15:37 Dose: 30 mg Lidocaine/Epinephrine (Xylocaine-Mpf 2%-Epi 1:200,000) Confirm Administered Dose 20 ml .ROUTE .STK-MED ONE Stop: 02/03/18 20:01 Meperidine HCl (Demerol) Confirm Administered Dose 50 mg .ROUTE .STK-MED ONE Stop: 02/03/18 21:02 Metoclopramide HCl (Reglan) 10 mg IVPUSH ONETIME ONE Stop: 02/03/18 19:47 Last Admin: 02/03/18 20:03 Dose: 10 mg Morphine Sulfate (Duramorph Pf) Confirm Administered Dose 10 mg .ROUTE .STK-MED ONE Stop: 02/03/18 19:57 Ondansetron HCl (Zofran) 4 mg IVPUSH Q8H PRN PRN Reason: Nausea Last Admin: 02/03/18 05:53 Dose: 4 mg Oxytocin (Pitocin) Confirm Administered Dose 10 unit .ROUTE .STK-MED ONE Stop: 02/03/18 19:58 Phenylephrine HCl (Orion-Synephrine) Confirm Administered Dose 10 mg .ROUTE .STK- MED ONE Stop: 02/03/18 19:57 Sodium Chloride (Saline Flush) 10 ml FLUSH ASDIRECTED PRN PRN Reason: Keep Vein Open - Infant Interaction Infant Disposition, : [place] in Room with Family Interaction: Holding Infant Infant Feeding: Attempted ; Nursed Fair/Poor Support Person: - Recovery Exam Fundal Tone: Firm Fundal Level: 1 Fingerbreadths Below Umbilicus Fundal Placement: Midline Lochia Amount: Scant Lochia Color: Rubra/Red Perineum Description: Intact, Minimal Bruising/Swelling Episiotomy/Laceration: None Bladder Status: Voiding Urinary Elimination: Voided - Exam General: Alert, Oriented, Cooperative Lungs: Clear to Auscultation, Normal Respiratory Effort Cardiovascular: Regular Rate, Regular Rhythm GI/Abdominal Exam: Soft, Tender (appropriate) Extremities: Normal Inspection Skin: Warm, Dry, Intact Wound/Incisions: Healing Well, No Drainage - Problem List & Annotations (1) 38 weeks gestation of SNOMED Code(s): 50256213 Code(s): Z3A.38 - 38 WEEKS GESTATION OF Status: Acute Current Visit: Yes (2) SROM (spontaneous rupture of membranes) SNOMED Code(s): 498495325 Code(s): RWW5360 - Status: Acute Current Visit: Yes (3) Failure to progress in first stage of labor SNOMED Code(s): 263157243 Code(s): UZG7044 - Status: Acute Current Visit: Yes (4) S/P primary low transverse SNOMED Code(s): 568162646, 41370315, 977583917, 771874817, 205143552 Code(s): Z98.891 - HISTORY OF UTERINE SCAR FROM PREVIOUS SURGERY Status: Acute Current Visit: Yes - Problem List Review Problem List Initiated/Reviewed/Updated: Yes - My Orders Last 24 Hours: My Active Orders 02/06/ 07:18 Ready for Discharge [RC] PER UNIT ROUTINE - Assessment Assessment:: 33 y/o G1 now P1001 POD#3 from [facility] for FTP in 1st stage. - Plan Plan:: [facility] * Routine care * Continue to work on breast feeding, will follow up in clinic * Zoloft restarted yesterday at 50 mg * Discharge home today
--- NOTE | 2018-02-06 07:20 | PCM.DCSUM1 ---
Discharge Summary - Discharge Data Discharge Date: 02/06/18 Discharge Disposition: Home, Self-Care 01 Condition: Good - Discharge Diagnosis/Problem(s) (1) 38 weeks gestation of SNOMED Code(s): 47408566 ICD Code: Z3A.38 - 38 WEEKS GESTATION OF Status: Acute Current Visit: Yes (2) SROM (spontaneous rupture of membranes) SNOMED Code(s): 471382982 ICD Code: [id number] - Status: Acute Current Visit: Yes (3) Failure to progress in first stage of labor SNOMED Code(s): 267544127 ICD Code: [id number] - Status: Acute Current Visit: Yes (4) S/P primary low transverse SNOMED Code(s): 532706811, 68182910, 866770459, [id number], 269532564 ICD Code: Z98.891 - HISTORY OF UTERINE SCAR FROM PREVIOUS SURGERY Status: Acute Current Visit: Yes - Patient Summary/Data Operative Procedure(s) Performed: Primary low transverse Complications: None Consults: None Recommended Follow-up Testing/Procedures: Follow up with Dr. Richardson in 2 weeks for incision check / mood check Hospital Course: Patient is a 33-year-old who presented at 38-2/7 weeks gestation with premature rupture of membranes. Initial exam showed her to only be about a half centimeter or so dilated. She was given a time to labor on her own, but after epidural did agree to Pitocin augmentation. She initially made good change to 5 cm, but then had arrest of dilation. IUPC placed and Pitocin further titrated. Patient with adequate contractions for approximately 3 hours and still with no cervical change past 5 cm. In addition there was some molding of head and swelling noted of the cervix. Given these findings and patient being ruptured for approximately 24 hours she was counseled on options and did agree to delivery via . This was notable for her bladder being markedly distended. Other than this surgery was uncomplicated. she did well. She did have some increasing anxiety on day #2 and so her Zoloft was restarted at a dose of 50 mg. She was eventually discharged home on postop day 3 with plans to follow up in clinic in 2 weeks for incision check and wound check. - Patient Instructions Diet: Regular Diet as Tolerated Activity: No Lifting Over 10 Pounds Activity, Other: Pelvic rest for 6 weeks Driving: Do Not Drive (While taking narcotics ) Showering/Bathing: May Shower, No Tub Bathing/Swimming Wound/Incision Care: Keep Operative Site/Wound Site Clean and Dry Notify Provider of: Fever, Increased Pain, Swelling and Redness, Drainage, Nausea and/or Vomiting - Discharge Plan *PRESCRIPTION DRUG MONITORING PROGRAM REVIEWED*: No *COPY OF PRESCRIPTION DRUG MONITORING REPORT IN PATIENT GEMA: No Prescriptions/Med Rec: Acetaminophen/oxyCODONE [Percocet 325-5 MG] 2 tab PO Q4H PRN #25 tablet PRN Reason: Pain (Moderate 4-6) Home Medications: Home Meds Vits #93/Iron Fum/FA [ Formula Tablet] 02/03/18 [History] Acetaminophen/oxyCODONE [Percocet 325-5 MG] 2 tab PO Q4H PRN #25 tablet [Rx] Docusate Sodium [Colace] 100 mg PO Q12H PRN #0 cap 02/05/18 [Rx] Ibuprofen [Motrin] 600 mg PO Q6H PRN tablet 02/05/18 [Rx] Patient Handouts: Home Care Instructions for Mom, Tips for a Good Latch Referrals: Bill Richardson MD [Physician] - (2 weeks for incision check) - Discharge Summary/Plan Comment DC Time >30 min.: No - Patient Data Vitals - Most Recent: Last Vital Signs Temp 36.7 C 02/06/18 03:51 Pulse 72 02/06/18 03:51 Resp 16 02/06/18 03:51 BP 125/91 H 02/06/18 03:51 Pulse Ox 99 02/06/18 03:51 Weight - Most Recent: 73.482 kg Med Orders - Current: Current Medications Docusate Sodium (Colace) 100 mg PO Q12H PRN PRN Reason: Constipation Last Admin: 02/05/18 09:13 Dose: 100 mg Emollient Ointment (Lansinoh Hpa) 0 gm TOP ASDIRECTED PRN PRN Reason: Sore Nipples Last Admin: 02/04/18 01:46 Dose: 1 tube Ephedrine Sulfate (Ephedrine Sulfate) 5 mg IVPUSH SEECOMMENT PRN PRN Reason: Other Ibuprofen (Motrin) 600 mg PO Q6H PRN PRN Reason: mild pain or fever Last Admin: 02/05/18 21:07 Dose: 600 mg Ondansetron HCl (Zofran) 4 mg IV Q8H PRN PRN Reason: Nausea/Vomiting Oxycodone/Acetaminophen (Percocet 325-5 Mg) 2 tab PO Q4H PRN PRN Reason: Pain (moderate 4-6) Last Admin: 02/05/18 21:06 Dose: 2 tab Simethicone (Simethicone) 80 mg PO Q4H PRN PRN Reason: Gas Last Admin: 02/04/18 15:43 Dose: 80 mg Discontinued Medications Acetaminophen (Tylenol) 650 mg PO Q6H PRN PRN Reason: Headache/Pain Last Admin: 02/03/18 15:08 Dose: 650 mg Bupivacaine HCl/Dextrose (Marcaine 0.75% Spinal) Confirm Administered Dose 2 ml .ROUTE .STK-MED ONE Stop: 02/03/18 19:58 Cefazolin Sodium (Ancef) Confirm Administered Dose 2 gm .ROUTE .STK-MED ONE Stop: 02/03/18 19:57 Citric Acid/Sodium Citrate (Bicitra Solution) 30 ml PO ONETIME ONE Stop: 02/03/18 19:47 Last Admin: 02/03/18 20:01 Dose: 30 ml Diphenhydramine HCl (Benadryl) 25 mg IVPUSH Q6H PRN PRN Reason: Itching Ephedrine Sulfate (Ephedrine Sulfate) 5 mg IVPUSH ASDIRECTED PRN PRN Reason: HYPOTENTSION Fentanyl (Sublimaze) 100 mcg EPIDUR Q3H PRN PRN Reason: Pain Last Admin: 02/03/18 04:10 Dose: 100 mcg Fentanyl/Bupivacaine HCl (Fentanyl/Bupivacaine/Ns 2 Mcg-0.125% 100 Ml) 100 ml EPIDUR ASDIRECTED LATRICE Last Admin: 02/03/18 15:40 Dose: 100 ml Lactated Ringer's (Ringers, Lactated) 1,000 mls @ 100 mls/hr IV ASDIRECTED LATRICE Last Admin: 02/03/18 15:40 Dose: 100 mls/hr Oxytocin/Lactated Ringer's (Pitocin In Lr 10 Units/1,000 Ml) 10 unit in 1,000 mls @ 500 mls/hr IV .CONTINUOUS LATRICE Oxytocin/Lactated Ringer's (Pitocin In Lr 10 Units/1,000 Ml) 10 unit in 1,000 mls @ 12 mls/hr IV TITRATE LATRICE; Protocol Last Titration: 02/03/18 19:37 Dose: 0 munits/min, 0 mls/hr Cefazolin Sodium/Dextrose 2 gm (/ Premix) 50 mls @ 100 mls/hr IV ONETIME ONE Stop: 02/03/18 20:15 Last Admin: 02/04/18 18:03 Dose: Not Given Dextrose/Lactated Ringer's (Dextrose 5%-Lactated Ringers) 1,000 mls @ 125 mls/ hr IV ASDIRECTED LATRICE Stop: 02/04/18 08:44 Last Admin: 02/04/18 01:44 Dose: 125 mls/hr Ketorolac Tromethamine (Toradol) Confirm Administered Dose 30 mg .ROUTE .STK- MED ONE Stop: 02/03/18 20:46 Ketorolac Tromethamine (Toradol) 30 mg IVPUSH Q6H LATRICE Stop: 02/04/18 15:31 Last Admin: 02/04/18 15:37 Dose: 30 mg Lidocaine/Epinephrine (Xylocaine-Mpf 2%-Epi 1:200,000) Confirm Administered Dose 20 ml .ROUTE .STK-MED ONE Stop: 02/03/18 20:01 Meperidine HCl (Demerol) Confirm Administered Dose 50 mg .ROUTE .STK-MED ONE Stop: 02/03/18 21:02 Metoclopramide HCl (Reglan) 10 mg IVPUSH ONETIME ONE Stop: 02/03/18 19:47 Last Admin: 02/03/18 20:03 Dose: 10 mg Morphine Sulfate (Duramorph Pf) Confirm Administered Dose 10 mg .ROUTE .STK-MED ONE Stop: 02/03/18 19:57 Ondansetron HCl (Zofran) 4 mg IVPUSH Q8H PRN PRN Reason: Nausea Last Admin: 02/03/18 05:53 Dose: 4 mg Oxytocin (Pitocin) Confirm Administered Dose 10 unit .ROUTE .STK-MED ONE Stop: 02/03/18 19:58 Phenylephrine HCl (Orion-Synephrine) Confirm Administered Dose 10 mg .ROUTE .STK- MED ONE Stop: 02/03/18 19:57 Sodium Chloride (Saline Flush) 10 ml FLUSH ASDIRECTED PRN PRN Reason: Keep Vein Open
[2018-02-06] MEDS: Acetaminophen/oxyCODONE 325-5 MG Tab PO PRN (08:21)
[2018-02-06] MEDS: Docusate Sodium 100 MG Cap PO PRN (08:22)
== END 2018-02-06 13:00 | disposition home or self-care (01) | DRG 540 ==
LOC: JD.OBCHECK 22:14 → JD.OB 22:19 → JD.OBCHECK 23:10 → OBSVTOIN 02-03 20:42 → JD.OB 02-03 20:43
PROVIDERS: ADMIT Obstetrics & Gynecology; ATTEND Obstetrics & Gynecology
PROC: 10D00Z1 Extraction of Products of Conception, Low, Open Approach (ICD-10-PCS; principal; 2018-02-03)
PROC: 6A550ZT Pheresis of Cord Blood Stem Cells, Single (ICD-10-PCS; 2018-02-03)
PROC: 10H07YZ Insertion of Other Device into Products of Conception, Via Natural or Artificial Opening (ICD-10-PCS; 2018-02-03)
PROC: 00HU33Z Insertion of Infusion Device into Spinal Canal, Percutaneous Approach (ICD-10-PCS; 2018-02-03)
PROC: 3E0R3BZ Introduction of Anesthetic Agent into Spinal Canal, Percutaneous Approach (ICD-10-PCS; 2018-02-03)
DX: O42.02 Full-term premature rupture of membranes, onset of labor within 24 hours of rupture (principal); Z3A.38 38 weeks gestation of pregnancy; Z37.0 Single live birth; O99.344 Other mental disorders complicating childbirth; F41.9 Anxiety disorder, unspecified; O62.0 Primary inadequate contractions; F32.9 Major depressive disorder, single episode, unspecified; Z88.6 Allergy status to analgesic agent
CPT/HCPCS: 36415; 51702; 59025; 59409; 84112; 85025; 85027; 86592; 86850; 86900; 86901; A9270-GY; J0690; J1885; J2175; J2270; J2370; J2405; J2590; J2765; J3010; J3490; J7042; J7120

== ENCOUNTER 2018-02-09 22:16 | Emergency (ER) | payer BC ==
--- NOTE | 2018-02-09 22:53 | EDM.PDOC ---
ED HPI GENERAL MEDICAL PROBLEM - General Chief Complaint: Fever Stated Complaint: RECENT CSECTION FEVER Time Seen by Provider: 02/09/18 22:44 Source of Information: Reports: Patient History Limitations: Reports: No Limitations - History of Present Illness INITIAL COMMENTS - FREE TEXT/NARRATIVE: 33-year-old female presents to the ED with acute onset of fever and chills starting about 4:30 this afternoon. Of note the patient is 6 days post and she had a due to failure to progress. She is 1 para 1. She also appreciates increased tenderness throughout the right breast prepped particularly inferior laterally. She states baby is been having trouble latching onto that breast and it feels more engorged than normal. No real significant pain around her wound or certainly worsening pain. She has some mild dysuria. She did have a Perera catheter in for less than 24 hours post surgery. Does have some diffuse low back discomfort. No headache no sore throat no earache no cough or sputum production. Bowels are working sluggishly but are working. Onset: Today Onset Date: 02/09/18 Onset Time: 16:30 Duration: Hour(s): Location: Reports: Generalized (Acute onset of fever and chills.) Quality: Reports: Ache Severity: Moderate (Diffusely achy particular her back.) Improves with: Reports: None ( Temperature up 100 200.5.) Worsens with: Reports: None Context: Reports: Other (6 days post . Perera catheter in for less than 24 hours.). Denies: Activity, Exercise, Lifting, Sick Contact, Trauma Associated Symptoms: Reports: Diaphoresis (Starting at 1630 hrs. today. Woke up with a cold sweat), Fever/Chills, Malaise. 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: Reports: Other (see below) (She is taking nothing for fever.) - Related Data Allergies Allergy/AdvReac Type Severity Reaction Status Date / Time codeine Allergy Anaphylactic Verified 02/09/18 22:34 Shock Home Meds: Home Meds Vits #93/Iron Fum/FA [ Formula Tablet] 1 tab PO DAILY 02/03/18 [History] Acetaminophen/oxyCODONE [Percocet 325-5 MG] 2 tab PO Q4H PRN #25 tablet [Rx] Docusate Sodium [Colace] 100 mg PO Q12H PRN #0 cap 02/05/18 [Rx] Ibuprofen [Motrin] 600 mg PO Q6H PRN tablet 02/05/18 [Rx] Cefdinir 300 mg PO BID #16 capsule 02/10/18 [Rx] Past Medical History - Past Health History Medical/Surgical History: Denies Medical/Surgical History Gastrointestinal History: Reports: GERD Genitourinary History: Reports: Other (See Below) (Mild dysuria.) [employer]ER History: Reports: : 1 Para: 1 ( done February 03 due to failure to progress.) Psychiatric History: Reports: Anxiety, Depression - Past Surgical History Female Surgical History: Reports: Section Social & Family History - Family History Family Medical History: Noncontributory Cardiac: Reports: Cardiomyopathy, Other (See Below) Other Cardiac Family History: hypertropic cardiomyopathy in maternal father - Tobacco Use Smoking Status *Q: Never Smoker - Recreational Drug Use Recreational Drug Use: No - Living Situation & Occupation Living situation: Reports: Occupation: Unemployed (6 days ) ED ROS GENERAL - Review of Systems Review Of Systems: See Below Constitutional: Reports: Fever, Malaise, Decreased Appetite. Denies: Fatigue, Night Sweats, Diaphoresis, Weight Loss HEENT: Reports: No Symptoms (Mild today) Respiratory: Reports: No Symptoms Cardiovascular: Reports: No Symptoms Endocrine: Reports: Fatigue GI/Abdominal: Reports: Abdominal Pain (Some pain around her wound bed doesn't like it's any worse than it has been.), Constipation : Reports: Dysuria (Mild positive constipation.), Frequency ( Minimal dysuria) Musculoskeletal: Reports: Back Pain (Diffuse low back discomfort.) Skin: Reports: Other (Mildly pallid since surgery) Neurological: Reports: No Symptoms Psychiatric: Reports: No Symptoms Hematologic/Lymphatic: Reports: No Symptoms Immunologic: Reports: No Symptoms ED EXAM, GENERAL - Physical Exam Exam: See Below Exam Limited By: No Limitations General Appearance: Alert, WD/WN, No Apparent Distress, Other (Does feel warm to palpation.) Eye Exam: Bilateral Eye: Normal Inspection Ears: Normal TMs Throat/Mouth: Normal Inspection, Normal Lips, Normal Teeth, Normal Oropharynx Head: Atraumatic, Normocephalic Neck: Normal Inspection, Supple, Non-Tender, Full Range of Motion. No: Lymphadenopathy (L), Lymphadenopathy (R) Respiratory/Chest: No Respiratory Distress, Lungs Clear, Normal Breath Sounds, No Accessory Muscle Use, Other (Patient does have tenderness in the right inferior lateral breast at the 8 o'clock position. Feels like there is a very firm milk duct in this area that is moderately tender. However the entire breast is very engorged. Is not red or inflamed to suggest an acute mastitis at this time.) Cardiovascular: Normal Peripheral Pulses, Regular Rate, Rhythm, No Edema, No Gallop, No Murmur, No Rub Peripheral Pulses: 3+: Posterior Tibial (L), Posterior Tibial (R), Dorsalis Pedis (L), Dorsalis Pedis (R) GI/Abdominal: Normal Bowel Sounds, Soft, Non-Tender, Other (Mild tenderness around the wound. All of her Steri-Strips are in place. There is no signs of any wound infection.) Back Exam: Normal Inspection, Full Range of Motion. No: CVA Tenderness (L), CVA Tenderness (R) Extremities: Normal Inspection, Normal Range of Motion, Non-Tender, No Pedal Edema Neurological: Alert, Oriented, CN II-XII Intact, Normal Cognition, Normal Gait Psychiatric: Normal Affect, Normal Mood Skin Exam: Warm, Dry, Intact, Normal Color, No Rash Course - Vital Signs Last Recorded V/S: Last Vital Signs Temp 37.3 C 02/09/18 23:20 Pulse 90 02/09/18 22:30 Resp 17 02/09/18 22:30 BP 129/78 02/09/18 22:30 Pulse Ox 97 02/09/18 22:30 - Orders/Labs/Meds Orders: Active Orders 24 hr Category Date Time Status Peripheral IV Care [RC] . DIRECTED Care 02/09/18 23:03 Active Chest 1V Frontal [CR] Stat Exams 02/09/18 23:01 Taken CULTURE BLOOD [BC] Stat Lab 02/09/18 23:32 Received CULTURE BLOOD [BC] Stat Lab 02/09/18 23:37 Received CULTURE URINE [RM] Stat Lab 02/09/18 22:59 Received URINALYSIS W/MICROSCOPIC [UA W/MICROSCOPIC] [URIN] Stat Lab 02/09/18 22:59 Ordered Sodium Chloride 0.9% [Saline Flush] Med 02/09/18 23:03 Active 10 ml FLUSH ASDIRECTED PRN Blood Culture x2 Reflex Set [OM.PC] Stat Oth 02/09/18 23:02 Ordered Peripheral IV Insertion Adult [OM.PC] Stat Oth 02/09/18 23:03 Ordered Medication Orders Sodium Chloride (Saline Flush) 10 ml FLUSH ASDIRECTED PRN PRN Reason: Keep Vein Open Last Admin: 02/10/18 00:34 Dose: 10 ml Labs: Laboratory Tests 02/09/18 02/09/18 02/09/18 Range/Units 22:59 23:32 23:32 WBC 13.65 H (3.98-10.04) K/mm3 RBC 2.68 L (3.98-5.22) M/mm3 Hgb 8.5 L (11.2-15.7) gm/L Hct 26.2 L (34.1-44.9) % MCV 97.8 H (79.4-94.8) fl MCH 31.7 (25.6-32.2) pg MCHC 32.4 (32.2-35.5) g/dl RDW Std Deviation 43.0 (36.4-46.3) fL Plt Count 324 (182-369) K/mm3 MPV 8.8 L (9.4-12.3) fl Neutrophils % (Manual) 85 H (40-60) % Band Neutrophils % 1 (0-10) % Lymphocytes % (Manual) 13 L (20-40) % Atypical Lymphs % 0 % Monocytes % (Manual) 1 L (2-10) % Eosinophils % (Manual) 0 L (0.7-5.8) % Basophils % (Manual) 0 L (0.1-1.2) Platelet Estimate Adequate RBC Morph Comment Normal Sodium 141 (136-145) mEq/L Potassium 4.0 (3.5-5.1) mEq/L Chloride 106 (98-107) mEq/L Carbon Dioxide 24 (21-32) mEq/L Anion Gap 15.0 (5-15) BUN 8 (7-18) mg/dL Creatinine 0.7 (0.55-1.02) mg/dL Est Cr Clr Drug Dosing 100.55 mL/min Estimated GFR (MDRD) > 60 (>60) mL/min BUN/Creatinine Ratio 11.4 L (14-18) Glucose 103 (74-106) mg/dL Calcium 8.6 (8.5-10.1) mg/dL Total Bilirubin 0.4 (0.2-1.0) mg/dL AST 19 (15-37) U/L ALT 22 (14-59) U/L Alkaline Phosphatase 119 H (46-116) U/L C-Reactive Protein 17.7 H* (<1.0) mg/dL Total Protein 6.2 L (6.4-8.2) g/dl Albumin 2.3 L (3.4-5.0) g/dl Globulin 3.9 gm/dL Albumin/Globulin Ratio 0.6 L (1-2) Urine Color Yellow (Yellow) Urine Appearance Clear (Clear) Urine pH 7.5 (5.0-8.0) Ur Specific [place] 1.015 (1.005-1.030) Urine Protein Negative (Negative) Urine Glucose (UA) Negative (Negative) Urine Ketones Negative (Negative) Urine Occult Blood 3+ H (Negative) Urine Nitrite Negative (Negative) Urine Bilirubin Negative (Negative) Urine Urobilinogen 0.2 (0.2-1.0) Ur Leukocyte Esterase 1+ H (Negative) Urine RBC 5-10 H (0-5) /hpf Urine WBC 5-10 H (0-5) /hpf Ur Epithelial Cells 0-5 (0-5) /hpf Urine Bacteria Occasional (FEW) /hpf Urine Mucus Not seen (FEW) /hpf Meds: Medications Generic Name Dose Route Start Last Admin Trade Name Freq PRN Reason Stop Dose Admin Sodium Chloride 10 ml 02/09/18 23:03 02/10/18 00:34 Saline Flush FLUSH 10 ml ASDIRECTED PRN Administration Keep Vein Open Discontinued Medications Generic Name Dose Route Start Last Admin Trade Name Freq PRN Reason Stop Dose Admin Acetaminophen 975 mg 02/09/18 23:03 02/09/18 23:20 Tylenol PO 02/09/18 23:04 975 mg NOW ONE Administration Ceftriaxone Sodium 1 gm/ 100 mls @ 200 mls/hr 02/09/18 23:47 02/10/18 00:34 Sodium Chloride IV 02/10/18 00:16 200 mls/hr ONETIME ONE Administration - Radiology Interpretation Free Text/Narrative:: 33-year-old female presents to the ED with acute onset of fever and chills starting about 1630 hrs. today. Associated with a mild diaphoresis or cold sweat about 1630 hrs. when she woke up from a nap. She did have a Perera catheter for less than 24 hours postop 6 days ago. She is breast- feeding . Examination shows no obvious source of infection. Plan septic workup to be commenced with a 1 view chest x-ray blood cultures 2 routine labs including a CRP. Urinalysis. - Re-Assessments/Exams Free Text/Narrative Re-Assessment/Exam: 02/10/18 00:35 Labs are back revealing a elevated white count at 13.65. Hemoglobin is low at 8.5 with hematocrit 26.2. MCV is elevated at 97.8. She has 85% neutrophils and 1% bands. Sodium is 141 with potassium of 4.0. Chloride is 106 bicarbonate 24. And a gap is 15.0. BUN is 8 with a creatinine of 0.7. GFR remains greater than 60. Glucose 103. Calcium 8.6. Liver function normal. C- reactive protein pending. Total protein is slightly low at 6.2 as is the albumin fraction of 2.3. Urinalysis shows 3+ occult blood and 1+ leukocyte esterase 5-10 RBCs per high-power field and 5-10 wbc's per high power field. I will therefore start her on Rocephin 1 g IV. 02/10/18 00:44 CRP came back elevated at 17.7. Portable chest x-ray reviewed and is completely normal. Therefore finish up her IV Rocephin and then I plan on discharge her on cephalosporin --cefdinir 300 mg twice a day for 7 more days. 02/10/18 01:09 she has completed her IV Rocephin. She will therefore be discharged to home. Continue Tylenol as needed for fever relief. Departure - Departure Time of Disposition: 01:09 Disposition: Home, Self-Care 01 Condition: Fair Clinical Impression: Acute febrile illness Urinary tract infection Qualifiers: Urinary tract infection type: acute pyelonephritis Qualified Code(s): N10 - Acute pyelonephritis - Discharge Information *PRESCRIPTION DRUG MONITORING PROGRAM REVIEWED*: Not Applicable *COPY OF PRESCRIPTION DRUG MONITORING REPORT IN PATIENT GEMA: Not Applicable Prescriptions: Cefdinir 300 mg PO BID #16 capsule Instructions: Urinary Tract Infection, Adult, Cxwy-if-Oabe, Fever, Adult, Easy- to-Read Referrals: PCP,Unknown [Primary Care Provider] - Forms: ED Department Discharge Additional Instructions: Evaluation in the emergency room today in regards to acute onset of fever and chills about 4:30 yesterday afternoon. You're now 6 days post with delivery of a term infant. No evidence of upper respiratory tract infection. Chest x-ray was normal. The surgical wound itself looks to be healing very well with no signs of infection. Urinalysis is suspect for urinary tract infection with 5-10+ cells per high-power field. Right breast tenderness is worrisome for developing last iritis but no signs of active infection appreciated on clinical exam. It may be just super engorged causing pain. At any rate she were treated because of an elevated white blood cell count and CRP suggestive of underlying bacterial infection. You received first dose of antibiotic Rocephin 1 g intravenously in the ED. He will need to take oral antibiotic Ceftin ear or milligram tablet twice daily for the next 8 days to clear up infection completely. Continue to use Tylenol 650 mg every 4-6 hours as needed for fever relief. Of note there is 325 mg of Tylenol in your pain pill. It is important not to take more than 4 g (4000 mg) of Tylenol totally in a day. Fever should dissipate after 36 hours once you receive antibiotic therapy. Follow-up with personal physician or return to medical care if still running a fever in 48 hours time - My Orders Last 24 Hours: My Active Orders 02/09/18 22:59 CULTURE URINE [RM] Stat URINALYSIS W/MICROSCOPIC [UA W/MICROSCOPIC] [URIN] Stat 02/09/18 23:01 Chest 1V Frontal [CR] Stat 02/09/18 23:02 Blood Culture x2 Reflex Set [OM.PC] Stat 02/09/18 23:03 Peripheral IV Care [RC] . DIRECTED Sodium Chloride 0.9% [Saline Flush] 10 ml FLUSH ASDIRECTED PRN Peripheral IV Insertion Adult [OM.PC] Stat 02/09/18 23:32 CULTURE BLOOD [BC] Stat 02/09/18 23:37 CULTURE BLOOD [BC] Stat - Assessment/Plan Last 24 Hours: My Active Orders 02/09/18 22:59 CULTURE URINE [RM] Stat URINALYSIS W/MICROSCOPIC [UA W/MICROSCOPIC] [URIN] Stat 02/09/18 23:01 Chest 1V Frontal [CR] Stat 02/09/18 23:02 Blood Culture x2 Reflex Set [OM.PC] Stat 02/09/18 23:03 Peripheral IV Care [RC] . DIRECTED Sodium Chloride 0.9% [Saline Flush] 10 ml FLUSH ASDIRECTED PRN Peripheral IV Insertion Adult [OM.PC] Stat 02/09/18 23:32 CULTURE BLOOD [BC] Stat 02/09/18 23:37 CULTURE BLOOD [BC] Stat
[2018-02-09] MEDS ORDERED: Sodium Chloride 0.9% 10 ML Syringe FLUSH PRN (23:03)
[2018-02-09] MEDS ORDERED: Acetaminophen 325 MG Tab PO ONE (23:03)
[2018-02-09] MEDS ORDERED: cefTRIAXone 1 GM in Sodium Chloride 0.9% 100 ML IV ONE (23:47)
--- NOTE | 2018-02-10 18:32 | CR ---
Chest: Portable view of the chest was obtained. Comparison: No prior chest x-ray is available. Heart size and mediastinum are normal. Lungs are clear. Bony structures are unremarkable. Impression: 1. Nothing acute is identified on portable chest x-ray. Diagnostic code #1
== END 2018-02-10 01:10 | disposition home or self-care (01) ==
LOC: JD.ED 22:16
DX: N10 Acute pyelonephritis (principal); K21.9 Gastro-esophageal reflux disease without esophagitis; F41.9 Anxiety disorder, unspecified; F32.9 Major depressive disorder, single episode, unspecified; Z88.5 Allergy status to narcotic agent; Z79.899 Other long term (current) drug therapy
CPT/HCPCS: 36415; 71045; 80053; 81001; 85007; 85027; 86140; 87040; 87086; 96365; 99284; A9270; J0696; J7030; J7050